=== PATIENT | female | born 1940 | race Caucasian/White ===

== ENCOUNTER 2017-03-04 11:34 | Emergency (ER) | payer MEDICARE ==
[2017-03-04 11:53] VITALS: BMI 29.2
[2017-03-04 12:02] VITALS: RESP 18; O2SAT 97
--- NOTE | 2017-03-04 12:58 | RAD ---
PROCEDURE: Radiographs of the Chest and Left Ribs. HISTORY: r/o fx COMPARISON: None available. TECHNIQUE: Frontal radiograph of the chest and multiple oblique radiographs of the left ribs were obtained. FINDINGS: LEFT RIBS: No fracture or focal lesion visualized. LUNGS: Clear. PLEURA: No pneumothorax or pleural fluid. CARDIOVASCULAR: Normal sized heart. No pulmonary vascular congestion. OTHER FINDINGS: Surgical clips in the right upper quadrant abdomen. IMPRESSION: Unremarkable radiographs of the chest and left ribs. No left rib fracture.
[2017-03-04 13:55] VITALS: BP 125/79; PULSE 66; TEMP 97.3
--- NOTE | 2017-03-04 14:17 | C.PDOC ---
History Of Present Illness 76 y/o female presents to the ED with complains of left sided rib pain for the past couple days which onset while washing causey. Pain is sharp and nonradiating. Pt denies chest pain, abdominal pain, nausea, vomiting or any other complaints. Pt took Tylenol with some relief. Chief Complaint (Nursing): Abdominal Pain History Per: Patient History/Exam Limitations: no limitations Onset/Duration Of Symptoms: Days Current Symptoms Are (Timing): Still Present Severity: Mild Radiation Of Pain To:: None Quality Of Discomfort: "Pain" Associated Symptoms: denies: Nausea, Vomiting Exacerbating Factors: None Alleviating Factors: None Recent travel outside of the [place]: No Past Medical History Reviewed: Historical Data, Nursing Documentation, Vital Signs Vital Signs: Last Vital Signs Temp 97.3 F L 03/04/17 13:54 Pulse 66 03/04/17 13:54 Resp 18 03/04/17 13:54 BP 125/79 03/04/17 13:54 Pulse Ox 97 03/04/17 14:20 - Medical History PMH: Back Problems, Seizures Surgical History: Appendectomy, Cholecystectomy Family History: States: Unknown Family Hx - Social History Hx Alcohol Use: No Hx Substance Use: No - Immunization History Hx Tetanus Toxoid Vaccination: No Hx Influenza Vaccination: No Hx Pneumococcal Vaccination: No Review Of Systems Except As Marked, All Systems Reviewed And Found Negative. Constitutional: Negative for: Fever Cardiovascular: Negative for: Chest Pain Respiratory: Negative for: Shortness of Breath Gastrointestinal: Negative for: Nausea, Vomiting, Abdominal Pain Musculoskeletal: Positive for: Other (left sided rib pain) Physical Exam - Physical Exam Appears: Non-toxic, No Acute Distress Skin: Warm, Dry, No Rash Head: Atraumatic, Normacephalic Neck: Normal ROM, Supple Chest: Symmetrical, Tenderness (point tenderness to left rib cage mid-axillary area) Cardiovascular: Rhythm Regular, No Murmur Respiratory: Normal Breath Sounds, No Rales, No Rhonchi, No Wheezing Gastrointestinal/Abdominal: Soft, No Tenderness Extremity: Bilateral: Atraumatic Neurological/Psych: Oriented x3, Normal Speech ED Course And Treatment O2 Sat by Pulse Oximetry: 97 (on room air) Pulse Ox Interpretation: Normal Medical Decision Making Medical Decision Making: Plan: motrin, left chest/rib XR Disposition - Disposition Referrals: [facility] Vesna Sierra, [Non-Staff] - Disposition: HOME/ ROUTINE Disposition Time: 13:10 Condition: GOOD Additional Instructions: Thank you for letting us take care of you today. Your provider was Dr. Joseph. You were treated for rib pain. The emergency medical care you received today was directed at your acute symptoms. If you were prescribed any medication, please fill it and take as directed. It may take several days for your symptoms to resolve. Return to the Emergency Department if your symptoms worsen, do not improve, or if you have any other problems. Please contact your doctor or call one of the physicians/clinics you have been referred to that are listed on the Patient Visit Information form that is included in your discharge packet. Bring any paperwork you were given at discharge with you along with any medications you are taking to your follow up visit. Our treatment cannot replace ongoing medical care by a primary care provider (PCP) outside of the emergency department. Thank you for allowing the [facility] team to be part of your care today. Follow up with your doctor in 3-4 days for re-evaluation. Prescriptions: Cyclobenzaprine [Cyclobenzaprine HCl] 10 mg PO Q8 PRN #20 tab PRN Reason: Muscle Spasm Ibuprofen [Motrin] 600 mg PO Q6 PRN #20 tab PRN Reason: Pain, Moderate (4-7) Instructions: Musculoskeletal Pain (ED) Forms: Gen Discharge Inst [place] Print Language: DIVEHI - Clinical Impression Clinical Impression: Costochondritis - Scribe Statement The provider has reviewed the documentation as recorded by the Maddy Mena Provider Attestation: All medical record entries made by the Maddy were at my direction and personally dictated by me. I have reviewed the chart and agree that the record accurately reflects my personal performance of the history, physical exam, medical decision making, and the department course for this patient. I have also personally directed, reviewed, and agree with the discharge instructions and disposition.
== END 2017-03-04 13:54 | disposition home or self-care (01) ==
LOC: C.ER 11:34
DX: M94.0 Chondrocostal junction syndrome [Tietze] (principal)

== ENCOUNTER 2017-06-16 10:33 | Emergency (ER) | payer MEDICARE ==
[2017-06-16 10:34] VITALS: BMI 29.2
[2017-06-16] MEDS ORDERED: Sodium Chloride 0.9% 1,000 ML IV ONE (11:00)
[2017-06-16] MEDS ORDERED: Belladonna-Phenobarbital PO STA (11:01)
[2017-06-16] MEDS ORDERED: Aluminum Hydroxide/Magnesium Hydroxide Susp (30 mL) PO STA (11:01)
[2017-06-16 11:16] LABS: BASO % 0.4 % (0.0-2.0); EOS % 0.1 % (0.0-4.0); HEMOGLOBIN 13.5 g/dL (11.0-16.0); LYMPH % 9.8 % (20.0-40.0); MEAN CELL VOLUME 95.1 fL (81.0-99.0); MEAN CORPUSCULAR HEMOGLOBIN 31.4 pg (27.0-31.0); MEAN PLATELET VOLUME 6.8 fL (7.2-11.7); MONO # 0.5 K/uL (0.0-0.8); MONO % 4.4 % (0.0-10.0); NEUT # 8.8 K/uL (1.8-7.0); NEUT % 85.3 % (50.0-75.0); PLATELET COUNT 329 K/uL (130-400); RBC 4.31 Mil/uL (3.80-5.20); RED CELL DISTRIBUTION WIDTH 13.9 % (11.5-14.5)
[2017-06-16 11:26] LABS: WHITE BLOOD COUNT 10.3 K/uL (4.8-10.8)
--- NOTE | 2017-06-16 11:26 | C.PDOC ---
History Of Present Illness Anai Lal, a 76 year old female, who has a past medical history of seizures is brought into the ED by her for abdominal pain, back pain and headache. The patient states that the abdominal pain started last night. She states that it started in the back but has now radiated to the front. Patient notes some nausea, vomiting(3-4 episodes) but denies any diarrhea. As per , the patient had a seizure this morning around 5:30am which lasted for 5 minutes. He states that her last seizure was 4-5 months ago. The states that the patient is compliant with her seizure medication, phenytoin which she takes once per day at 9pm. He reports that her last seizure was 4-5 months ago. PMD: Dr. Llamas Neurologist: Dr. Jose Tellez Time Seen by Provider: 06/16/17 10:48 Chief Complaint (Nursing): GI Problem History Per: Patient, Family () History/Exam Limitations: no limitations Onset/Duration Of Symptoms: Hrs Current Symptoms Are (Timing): Still Present Associated Symptoms: Nausea, Vomiting (4-5 episodes), Back Pain. denies: Diarrhea Past Medical History Reviewed: Historical Data, Nursing Documentation, Vital Signs Vital Signs: Last Vital Signs Temp 98.5 F 06/16/17 14:20 Pulse 69 06/16/17 14:20 Resp 18 06/16/17 14:20 BP 122/64 06/16/17 14:20 Pulse Ox 95 06/16/17 14:20 - Medical History PMH: Back Problems, Seizures Surgical History: Appendectomy, Cholecystectomy Family History: States: Unknown Family Hx - Social History Hx Alcohol Use: No Hx Substance Use: No - Immunization History Hx Tetanus Toxoid Vaccination: No Hx Influenza Vaccination: No Hx Pneumococcal Vaccination: No Review Of Systems Gastrointestinal: Positive for: Nausea, Vomiting (3-4 episodes), Abdominal Pain Musculoskeletal: Positive for: Back Pain Neurological: Positive for: Headache Physical Exam - Physical Exam Appears: Non-toxic, Other (uncomfortable) Skin: Normal Color, Warm, Dry Head: Atraumatic, Normacephalic Eye(s): bilateral: Normal Inspection, PERRL, EOMI Ear(s): Bilateral: Normal Neck: Normal, Normal ROM, Supple Chest: No Deformity, No Tenderness Cardiovascular: Rhythm Regular Respiratory: Normal Breath Sounds, No Wheezing Gastrointestinal/Abdominal: Bowel Sounds, Soft, No Tenderness, Other ( Epigastric discomfort) Neurological/Psych: Oriented x3, Normal Speech ED Course And Treatment - Laboratory Results Result Diagrams: 06/16/17 11:09 06/16/17 11:09 O2 Sat by Pulse Oximetry: 96 (RA) Pulse Ox Interpretation: Normal Medical Decision Making Medical Decision Makin Initial Impression: 76 year old female presenting with back pain, abdominal pain and headache Initial Plan: * EKG * B-type Natriuetic * Comp Metabolic Panel * Dilantin * Drug Screen * Lipase * Troponin * CBC * CXR * 1 tab PO * Maalox 30 ml PO * Pepcid 20 mg IVP * Zofran inj 4mg IVP * Urinalysis * Reevaluation 1220 Chest one view Comparison chest xray performed 03/04/19 Findings Examination limited by habitus Lungs Mid left basilar atelectasis. Biapical pleural thickening Pleura no significant pleural effusion identified. NO definite pneumothorax Cardiovascular Heart size appears top normal Osseous structures degenerative changes of spine and shoulders Scribe Attestation Documented by Sydnee Sesay acting as a scribe fro Maria Antonia Thacker MD. Provider Attestation All medical record entries made by the scribe were at my direction and personally dictated by me. I have reviewed the chart and agree that the record accurately reflects my personal performance, history, physical exam, medical decision making, and the department course for this patient. Ihave also personally directed, reviewed, and agree with the discharge instructions and disposition. Disposition Counseled Patient/Family Regarding: Studies Performed, Diagnosis - Disposition Disposition: HOME/ ROUTINE Disposition Time: 14:46 Condition: STABLE Additional Instructions: Follow up with your regular doctor. Instructions: Women and Epilepsy (ED), Acute Abdominal Pain (ED) Forms: Gen Discharge Inst [place], [facility] ([place]) - POA Present On Arrival: None - Clinical Impression Clinical Impression: Abdominal pain, Gastritis
[2017-06-16] MEDS ORDERED: Belladonna-Phenobarbital ONE (11:33)
[2017-06-16] MEDS ORDERED: Sodium Chloride 0.9% 1,000 ML ONE (11:33)
[2017-06-16] MEDS ORDERED: Aluminum Hydroxide/Magnesium Hydroxide Susp (30 mL) ONE (11:33)
[2017-06-16 11:53] LABS: LYMPHOCYTE 10 % (20-40); MONOCYTE 5 % (0-10); NEUTROPHIL 85 % (50-75); PLATELET ESTIMATE NORMAL (NORMAL); TOTAL CELLS COUNTED 100
[2017-06-16 12:15] LABS: ALBUMIN 3.6 g/dL (3.5-5.0)
[2017-06-16 12:18] LABS: ALB/GLOB RATIO 1.1 (1.0-2.1); ALT/SGPT 26 U/L (9-52); AST/SGOT 27 U/L (14-36); BLOOD UREA NITROGEN 14 mg/dL (7-17); GFR AFRICAN-AMERICAN > 60; GFR NON-AFRICAN AMERICAN > 60
[2017-06-16 12:19] LABS: CALCIUM 8.7 mg/dl (8.6-10.4); LIPASE 240 U/L (23-300)
--- NOTE | 2017-06-16 12:22 | RAD ---
HISTORY: Seizure COMPARISON: Chest x-ray performed 03/04/17 TECHNIQUE: Chest, one view. FINDINGS: Examination limited by habitus. LUNGS: Mild left basilar atelectasis. Biapical pleural thickening. Please note that chest x-ray has limited sensitivity for the detection of pulmonary masses. PLEURA: No significant pleural effusion identified. No definite pneumothorax . CARDIOVASCULAR: Heart size appears top normal. OSSEOUS STRUCTURES: Degenerative changes of the spine and shoulders. VISUALIZED UPPER ABDOMEN: Unremarkable. OTHER FINDINGS: None. IMPRESSION: Mild left basilar atelectasis. Biapical pleural thickening.
[2017-06-16 12:27] LABS: B-TYPE NATRIURETIC PEPTIDE 379 pg/mL (0-900)
[2017-06-16 13:51] LABS: SQUAMOUS EPITHIAL 3 /hpf (0-5); URINE BILIRUBIN NEGATIVE (NEGATIVE); URINE BLOOD NEGATIVE (NEGATIVE); URINE CLARITY Clear (Clear); URINE COLOR Yellow (YELLOW); URINE GLUCOSE (UA) NORMAL (Normal); URINE LEUKOCYTE ESTERASE NEG Leu/uL (Negative); URINE NITRATE NEGATIVE (NEGATIVE); URINE PROTEIN NEGATIVE (NEGATIVE); URINE UROBILINOGEN NORMAL mg/dL (0.2-1.0)
[2017-06-16 14:00] LABS: BARBITURATES, UR NEGATIVE (NEGATIVE); BENZODIAZEPINES, UR NEGATIVE (NEGATIVE)
[2017-06-16 14:03] LABS: OPIATES, UR NEGATIVE (NEGATIVE); PHENCYCLIDINE, UR NEGATIVE (NEGATIVE)
[2017-06-16 14:21] VITALS: BP 122/64; PULSE 69; RESP 18; TEMP 98.5
[2017-06-16 14:48] VITALS: O2SAT 96
--- NOTE | 2017-06-16 20:19 | CARD ---
APPROVED REPORT EKG Measurement Heart [id number] <Conclusion> Normal sinus rhythm Normal ECG
== END 2017-06-16 15:20 | disposition home or self-care (01) ==
LOC: C.ER 10:33
DX: K29.70 Gastritis, unspecified, without bleeding (principal)
CPT/HCPCS: 71010; 80053; 80185; 81001; 83690; 83880; 84484; 85025; 93005; 96361; 96374; 96375; 99285; G0480; J2405; J7040